=== PATIENT | female | born 1960 | race Two or more races ===

== ENCOUNTER 2017-10-14 10:32 | Emergency (ER) | payer SELFPAY ==
[~2017-10-14] VITALS: Ht 152.4 cm; Wt 45.0 kg
[2017-10-14] MEDS ORDERED: IOHEXOL 350 MG/ML 10 ML VIAL (for RAD DIAG) IVCONTRAST ONE (10:33)
[2017-10-14 10:45] VITALS: BP 140/75; PULSE 73; RESP 16; TEMP 98.4; O2SAT 99
[2017-10-14] MEDS ORDERED: SODIUM CHLOR 0.9% 1000 ML INJ 1,000 ML IV SCH (11:19)
--- NOTE | 2017-10-14 11:27 | PD ---
HPI Chief Complaint: GI Complaint Time Seen by Provider: 11:07 Travel History International Travel<30 days: No Contact w/Intl Traveler<30days: No Traveled to known affect area: No History of Present Illness HPI Patient comes to the emergency department complaining of continued epigastric abdominal pain radiating into her chest and her back. Patient was seen here 4 days ago for the same however there is no space between the K and the G of her last name. Describes pain as burning-like in nature improves with belching. Patient continues to take Nexium with minimal to no relief of symptoms. Patient reports trying to contact GI that as previously instructed, but is unable get seen until November. Patient reports pain significantly worse last night and her sisters decided to bring her back to the emergency department for reevaluation. Patient denies any abdominal surgeries. PFSH Past Medical History Diminished Hearing: No GERD: Yes Ulcer: Yes ?: Not : 2 Para: 2 Social History Alcohol Use: No Tobacco Use: No Substance Use: No Allergies-Medications (Allergen,Severity, Reaction): Coded Allergies: amoxicillin (Verified Allergy, Unknown, 10/14/17) Reported Meds & Prescriptions Reported Meds & Active Scripts Active Zofran Odt (Ondansetron Odt) 4 Mg Tab 4 Mg SL Q6HR PRN Tramadol (Tramadol HCl) 50 Mg Tab 50 Mg PO Q8H PRN Review of Systems Except as stated in HPI: all other systems reviewed are Neg Physical Exam Narrative GENERAL: Well-developed, well nourished, in no acute distress, and non-ill appearing. SKIN: Focused skin assessment warm and dry. HEAD: Atraumatic. Normocephalic. EYES: Pupils equal and round. EOMI. No scleral icterus. No injection or drainage. ENT: No nasal bleeding or discharge. Mucous membranes pink and moist. NECK: Trachea midline. No JVD. Supple. No nuclear rigidity. CARDIOVASCULAR: Regular rate and rhythm. No murmur appreciated. RESPIRATORY: No accessory muscle use. No respiratory distress. Clear to auscultation. Breath sounds equal bilaterally. GASTROINTESTINAL: Abdomen soft, nondistended, and no guarding. Hepatic and splenic margins not palpable. Normal bowel sounds x4. No pulsatile mass. Patient reports tenderness in epigastric area. MUSCULOSKELETAL: No obvious deformities. No clubbing. No cyanosis. No edema. Full range of motion. NEUROLOGICAL: Awake and alert. No obvious cranial nerve deficits. Motor grossly within normal limits. Normal speech. PSYCHIATRIC: Appropriate mood and affect; insight and judgment normal. Data Data Last Documented VS Vital Signs Date Time Temp Pulse Resp B/P (MAP) Pulse Ox O2 Delivery O2 Flow Rate FiO2 10/14/17 15:51 20 10/14/17 13:09 100 Room Air 10/14/17 13:09 65 10/14/17 10:45 98.4 140/75 (96) Orders Orders Electrocardiogram (10/14/17 11:19) Ckmb (Isoenzyme) Profile (10/14/17 11:19) Complete Blood Count With Diff (10/14/17 11:19) Comprehensive Metabolic Panel (10/14/17 11:19) Magnesium (Mg) (10/14/17 11:19) Prothrombin Time / Inr (Pt) (10/14/17 11:19) Act Partial Throm Time (Ptt) (10/14/17 11:19) Troponin I (10/14/17 11:19) Lipase (10/14/17 11:19) Ecg Monitoring (10/14/17 11:19) Bilateral Bp Monitoring (10/14/17 11:19) Iv Access Insert/Monitor (10/14/17 11:19) Oximetry (10/14/17 11:19) Oxygen Administration (10/14/17 11:19) Sodium Chloride 0.9% Flush (Ns Flush) (10/14/17 11:30) Chest, Pa & Lat (10/14/17 11:19) Sodium Chlor 0.9% 1000 Ml Inj (Ns 1000 M (10/14/17 11:19) Al-Mag Hy-Si 40-40-4 Mg/Ml Liq (Mag-Al P (10/14/17 11:30) Lidocaine 2% Viscous (Xylocaine 2% Visco (10/14/17 11:30) Ondansetron Odt (Zofran Odt) (10/14/17 11:30) Famotidine (Pepcid) (10/14/17 11:30) Urinalysis - C+S If Indicated (10/14/17 11:23) Us Abdomen Gallbladder (10/14/17 11:27) Morphine Inj (Morphine Inj) (10/14/17 13:30) Cta Thor Abd Aorta W Iv C W3d (10/14/17 ) Iohexol 350 Inj (Omnipaque 350 Inj) (10/14/17 10:33) Morphine Inj (Morphine Inj) (10/14/17 15:30) Ed Discharge Order (10/14/17 15:40) Labs Laboratory Tests Test 10/14/17 12:10 10/14/17 12:40 10/14/17 13:00 Prothrombin Time 10.4 SEC Prothromb Time International Ratio 1.0 RATIO Activated Partial Thromboplast Time 24.4 SEC Urine Color LIGHT-YELLOW Urine Turbidity CLEAR Urine pH 8.0 Urine Specific [place] 1.004 Urine Protein NEG mg/dL Urine Glucose (UA) NEG mg/dL Urine Ketones NEG mg/dL Urine Occult Blood NEG Urine Nitrite NEG Urine Bilirubin NEG Urine Urobilinogen LESS THAN 2.0 MG/DL Urine Leukocyte Esterase NEG Urine WBC 1 /hpf Microscopic Urinalysis Comment CULT NOT INDICATED White Blood Count 5.1 TH/MM3 Red Blood Count 4.47 MIL/MM3 Hemoglobin 12.6 GM/DL Hematocrit 37.2 % Mean Corpuscular Volume 83.1 FL Mean Corpuscular Hemoglobin 28.3 PG Mean Corpuscular Hemoglobin Concent 34.0 % Red Cell Distribution Width 12.4 % Platelet Count 161 TH/MM3 Mean Platelet Volume 10.3 FL Neutrophils (%) (Auto) 52.1 % Lymphocytes (%) (Auto) 39.7 % Monocytes (%) (Auto) 6.6 % Eosinophils (%) (Auto) 1.3 % Basophils (%) (Auto) 0.3 % Neutrophils # (Auto) 2.6 TH/MM3 Lymphocytes # (Auto) 2.0 TH/MM3 Monocytes # (Auto) 0.3 TH/MM3 Eosinophils # (Auto) 0.1 TH/MM3 Basophils # (Auto) 0.0 TH/MM3 CBC Comment DIFF FINAL Differential Comment Blood Urea Nitrogen 9 MG/DL Creatinine 0.53 MG/DL Random Glucose 79 MG/DL Total Protein 6.8 GM/DL Albumin 3.3 GM/DL Calcium Level 8.0 MG/DL Magnesium Level 2.2 MG/DL Alkaline Phosphatase 72 U/L Aspartate Amino Transf (AST/SGOT) 17 U/L Alanine Aminotransferase (ALT/SGPT) 26 U/L Total Bilirubin 0.4 MG/DL Sodium Level 144 MEQ/L Potassium Level 3.7 MEQ/L Chloride Level 111 MEQ/L Carbon Dioxide Level 24.7 MEQ/L Anion Gap 8 MEQ/L Estimat Glomerular Filtration Rate 119 ML/MIN Total Creatine Kinase 22 U/L Troponin I LESS THAN 0.02 NG/ML Lipase 161 U/L MDM Medical Decision Making Medical Screen Exam Complete: Yes Emergency Medical Condition: Yes Interpretation(s) EKG reviewed by Dr. Amanda shows sinus rhythm ventricular rate of 67. No STEMI. Last Impressions Gall Bladder Ultrasound 10/14/17 1127 Signed Impressions: CONCLUSION: 1. No evidence for cholelithiasis. Chest X-Ray 10/14/17 1119 Signed Impressions: CONCLUSION: No acute cardiopulmonary disease Aorta CTA 10/14/17 0000 Signed Impressions: CONCLUSION: 1. Normal appearance of the thoracic and abdominal aorta without aneurysm or d issection. Differential Diagnosis Atypical chest pain, cholecystitis, cholelithiasis, biliary colic, UTI, renal calculi, gastritis, metabolic disturbance, AAA Narrative Course The patient presented with upper epigastric abdominal pain suspicious for gastritis. There was no significant history of diarrhea and no fever. The patient appeared comfortable, well hydrated and the abdominal exam was unremarkable and minimal tender to me. Laboratory and radiographic/sonographic evaluation revealed no significant abnormality. There was no evidence of an acute, surgical abdomen at this time. There was no clinical evidence to support cholecystitis/cholelithiasis, pancreatitis, perforation of gastric ulcer, colitis, diverticulitis, bacterial peritonitis, obstruction, volvulus, early appendicitis, or hernial incarceration or strangulation nor significant GIB at this time. There was no evidence to support vascular pathology such as AAA, mesenteric ischemia. There was also no clinical evidence by history, exam or risk factors to suggest atypical presentation of cardiac disease such as ACS, AMI or atypical angina. No evidence to suggest genitourinary etiology as well. During the course of the ED visit, the patient noted improvement. Clinical picture was discussed with the patient, as well as plan of care. The patient was instructed to follow up with their GI tomorrow. Abdominal pain warnings were discussed with the patient. The patient is to return if worsens, pain worsens or changes, develop fever, inability to tolerate fluids with or without vomiting, unable to establish follow up or as needed. The patient agrees with plan. Patient in no obvious distress upon re-evaluation. All pertinent laboratory/ Radiology result(s) discussed with patient/family. Discussed patient with Dr. Amanda prior discharge, who saw and evaluated the patient and is in agreement with plan of care and disposition. Any questions/concerns in reference to patient diagnosis/condition discussed and clarified prior to patient's discharge. Reinforced sheer importance of close follow up with GI tomorrow for endoscopy. Instructed patient to return to ED immediately, if symptoms return/ worsen. Patient showed understanding of above instructions. Further instructions and recommendations were detailed in discharge paperwork. Patient ambulated without difficulty out of ED at discharge. Physician Communication Physician Communication [id number] Minor, GI on-call, who states that he can do a scope tomorrow as well as patient stays n.p.o. after midnight tonight and contact his office first thing in the morning between 8 and 830 and has an adult to drive her home. Diagnosis Primary Impression: Abdominal pain Qualified Codes: R10.13 - Epigastric pain Referrals: Kevin Minor MD Patient Instructions: Abdominal Pain (ED), General Instructions Additional Instructions: Follow-up with Dr. Minor tomorrow contact his office between 8-8:30 in the morning at [phone] to schedule time for have an endoscopy tomorrow. Nothing to eat or drink after midnight tonight. Have an adult drive you to in front of her appointment. Take all medication as prescribed. Return to the emergency department if symptoms get worse. Med/Other Pt SpecificInfo: Prescription(s) given Scripts Ondansetron Odt (Zofran Odt) 4 Mg Tab 4 MG SL Q6HR Y for Nausea/Vomiting, #12 TAB 0 Refills Prov: Juan José Amanda MD 10/14/17 Tramadol (Tramadol) 50 Mg Tab 50 MG PO Q8H Y for PAIN, #7 TAB 0 Refills Prov: Juan José Amanda MD 10/14/17 Disposition: 01 DISCHARGE HOME Condition: Stable Dwain Patricio October 14, 2017 11:27
[2017-10-14] MEDS ORDERED: SODIUM CHLORIDE 0.9% FLUSH 10 ML FLUSH IVF PRN (11:30)
[2017-10-14] MEDS ORDERED: ALUMINUM/MAGNESIUM/SIMETH 30 ML CUP PO ONE (11:30)
[2017-10-14] MEDS ORDERED: LIDOCAINE VISCOUS 2% SOLN 15 ML UDC PO ONE (11:30)
[2017-10-14] MEDS ORDERED: ONDANSETRON ODT 4 MG TAB PO ONE (11:30)
[2017-10-14] MEDS ORDERED: FAMOTIDINE 20 MG TAB PO ONE (11:30)
--- NOTE | 2017-10-14 12:08 | RADRPT ---
EXAM DATE: 10/14/2017 12:04 PM EDT AGE/SEX: 56 years / Female INDICATIONS: Abdominal pain. CLINICAL DATA: This is the patient's initial encounter. Patient reports that signs and symptoms have been present for 2 days and indicates a pain score of 4/10. MEDICAL/SURGICAL HISTORY: . History of bleeding ulcer ten years ago. For two weeks patient has been experiencing pain directly under sternum if she eats. For two days now the pain starts anterior and shoots posteriorly. No prior abdominal surgery. . Lumpectomy, right breast, three years ago. COMPARISON: No prior [facility] exams available for comparison. FINDINGS: PA and lateral views of the chest demonstrate the lungs to be symmetrically aerated without evidence of mass, infiltrate or effusion. The cardiomediastinal contours are unremarkable. Osseous structures are intact. CONCLUSION: No acute cardiopulmonary disease Electronically signed by: Moreno Stuart MD 10/14/2017 12:06 PM EDT
[2017-10-14 12:48] LABS: PROTHROMBIN TIME - PATIENT 10.4 SEC (9.8-11.6)
[2017-10-14 13:01] LABS: BILIRUBIN, URINE NEG (NEG); BLOOD, URINE NEG (NEG); GLUCOSE,URINE NEG (NEG); KETONE, URINE NEG (NEG); NITRITE,URINE NEG (NEG); URINE COLOR LIGHT-YELLOW (YELLW/STRAW); URINE LEUKOCYTE ESTERASE NEG (NEG)
[2017-10-14 13:09] VITALS: PULSE 65; RESP 17; O2SAT 100
[2017-10-14 13:12] LABS: AUTOMATED NEUTROPHIL # 2.6 TH/MM3 (1.8-7.7); BASOPHIL % 0.3 % (0.0-2.0); EOSINOPHIL # 0.1 TH/MM3 (0-0.4); EOSINOPHIL % 1.3 % (0.0-4.0); HEMATOCRIT 37.2 % (35.0-46.0); HEMOGLOBIN 12.6 GM/DL (11.6-15.3); LYMPH % 39.7 % (9.0-44.0); MEAN CELL VOLUME 83.1 FL (80.0-100.0); MEAN CORPUSCULAR HEMOGLOBIN 28.3 PG (27.0-34.0); MEAN PLATELET VOLUME 10.3 FL (7.0-11.0); MONO % 6.6 % (0.0-8.0); MONOCYTE # 0.3 TH/MM3 (0-0.9); NEUT % 52.1 % (16.0-70.0); PLATELET COUNT 161 TH/MM3 (150-450); RED BLOOD COUNT 4.47 MIL/MM3 (4.00-5.30); RED CELL DISTRIBUTION WIDTH 12.4 % (11.6-17.2); WHITE BLOOD COUNT 5.1 TH/MM3 (4.0-11.0)
--- NOTE | 2017-10-14 13:29 | RADRPT ---
EXAM DATE: 10/14/2017 1:26 PM EDT AGE/SEX: 56 years / Female INDICATIONS: Right upper quadrant and back pain. CLINICAL DATA: This is the patient's initial encounter. Patient reports that signs and/or symptoms h ave been present for 4 - 6 days and indicates a pain score of 9/10. MEDICAL/SURGICAL HISTORY: . GERD. None. COMPARISON: No prior [facility] exams available for comparison MEASUREMENTS (cm x cm x cm): Liver:__ 15.2 cm length Common Bile Duct:__ 4mm FINDINGS: Liver: Normal echotexture without focal lesion or ductal dilatation. Portal Vein: Hepatofugal flow seen in portal vein. Common Duct: No intralumincal mass or stone visualized. Gallbladder: Demonstrates no wall thickening or pericholecystic fluid. No stones visualized. Pancreas: The visualized portions are within normal limits Right Kidney: No mass or hydronephrosis Other: None. CONCLUSION: 1. No evidence for cholelithiasis. Electronically signed by: Moreno Stuart MD 10/14/2017 1:28 PM EDT
[2017-10-14] MEDS ORDERED: MORPHINE SULFATE 4 MG/ML INJ IV PUSH ONE ×2 (13:30→15:30)
[2017-10-14 13:31] LABS: ALBUMIN 3.3 GM/DL (3.4-5.0); ALT (GPT) 26 U/L (10-53); AST (GOT) 17 U/L (15-37); BICARBONATE 24.7 MEQ/L (21.0-32.0); BLOOD UREA NITROGEN 9 MG/DL (7-18); CHLORIDE 111 MEQ/L (98-107); CREATININE 0.53 MG/DL (0.50-1.00); GLOMERULAR FILTRATION RATE 119 ML/MIN (>89); GLUCOSE,RANDOM 79 MG/DL (74-106); MAGNESIUM 2.2 MG/DL (1.5-2.5); SODIUM (NA) 144 MEQ/L (136-145)
[2017-10-14 13:35] LABS: ALKALINE PHOSPHATASE 72 U/L (45-117); TOTAL BILIRUBIN ADULT 0.4 MG/DL (0.2-1.0); TOTAL PROTEIN 6.8 GM/DL (6.4-8.2); TROPONIN I LESS THAN 0.02 NG/ML (0.02-0.05)
--- NOTE | 2017-10-14 14:01 | PD ---
Data Data Last Documented VS Vital Signs Date Time Temp Pulse Resp B/P (MAP) Pulse Ox O2 Delivery O2 Flow Rate FiO2 10/14/17 15:51 20 10/14/17 13:09 100 Room Air 10/14/17 13:09 65 10/14/17 10:45 98.4 140/75 (96) Orders Orders Electrocardiogram (10/14/17 11:19) Ckmb (Isoenzyme) Profile (10/14/17 11:19) Complete Blood Count With Diff (10/14/17 11:19) Comprehensive Metabolic Panel (10/14/17 11:19) Magnesium (Mg) (10/14/17 11:19) Prothrombin Time / Inr (Pt) (10/14/17 11:19) Act Partial Throm Time (Ptt) (10/14/17 11:19) Troponin I (10/14/17 11:19) Lipase (10/14/17 11:19) Ecg Monitoring (10/14/17 11:19) Bilateral Bp Monitoring (10/14/17 11:19) Iv Access Insert/Monitor (10/14/17 11:19) Oximetry (10/14/17 11:19) Oxygen Administration (10/14/17 11:19) Sodium Chloride 0.9% Flush (Ns Flush) (10/14/17 11:30) Chest, Pa & Lat (10/14/17 11:19) Sodium Chlor 0.9% 1000 Ml Inj (Ns 1000 M (10/14/17 11:19) Al-Mag Hy-Si 40-40-4 Mg/Ml Liq (Mag-Al P (10/14/17 11:30) Lidocaine 2% Viscous (Xylocaine 2% Visco (10/14/17 11:30) Ondansetron Odt (Zofran Odt) (10/14/17 11:30) Famotidine (Pepcid) (10/14/17 11:30) Urinalysis - C+S If Indicated (10/14/17 11:23) Us Abdomen Gallbladder (10/14/17 11:27) Morphine Inj (Morphine Inj) (10/14/17 13:30) Cta Thor Abd Aorta W Iv C W3d (10/14/17 ) Iohexol 350 Inj (Omnipaque 350 Inj) (10/14/17 10:33) Morphine Inj (Morphine Inj) (10/14/17 15:30) Ed Discharge Order (10/14/17 15:40) Labs Laboratory Tests Test 10/14/17 12:10 10/14/17 12:40 10/14/17 13:00 Prothrombin Time 10.4 SEC Prothromb Time International Ratio 1.0 RATIO Activated Partial Thromboplast Time 24.4 SEC Urine Color LIGHT-YELLOW Urine Turbidity CLEAR Urine pH 8.0 Urine Specific [place] 1.004 Urine Protein NEG mg/dL Urine Glucose (UA) NEG mg/dL Urine Ketones NEG mg/dL Urine Occult Blood NEG Urine Nitrite NEG Urine Bilirubin NEG Urine Urobilinogen LESS THAN 2.0 MG/DL Urine Leukocyte Esterase NEG Urine WBC 1 /hpf Microscopic Urinalysis Comment CULT NOT INDICATED White Blood Count 5.1 TH/MM3 Red Blood Count 4.47 MIL/MM3 Hemoglobin 12.6 GM/DL Hematocrit 37.2 % Mean Corpuscular Volume 83.1 FL Mean Corpuscular Hemoglobin 28.3 PG Mean Corpuscular Hemoglobin Concent 34.0 % Red Cell Distribution Width 12.4 % Platelet Count 161 TH/MM3 Mean Platelet Volume 10.3 FL Neutrophils (%) (Auto) 52.1 % Lymphocytes (%) (Auto) 39.7 % Monocytes (%) (Auto) 6.6 % Eosinophils (%) (Auto) 1.3 % Basophils (%) (Auto) 0.3 % Neutrophils # (Auto) 2.6 TH/MM3 Lymphocytes # (Auto) 2.0 TH/MM3 Monocytes # (Auto) 0.3 TH/MM3 Eosinophils # (Auto) 0.1 TH/MM3 Basophils # (Auto) 0.0 TH/MM3 CBC Comment DIFF FINAL Differential Comment Blood Urea Nitrogen 9 MG/DL Creatinine 0.53 MG/DL Random Glucose 79 MG/DL Total Protein 6.8 GM/DL Albumin 3.3 GM/DL Calcium Level 8.0 MG/DL Magnesium Level 2.2 MG/DL Alkaline Phosphatase 72 U/L Aspartate Amino Transf (AST/SGOT) 17 U/L Alanine Aminotransferase (ALT/SGPT) 26 U/L Total Bilirubin 0.4 MG/DL Sodium Level 144 MEQ/L Potassium Level 3.7 MEQ/L Chloride Level 111 MEQ/L Carbon Dioxide Level 24.7 MEQ/L Anion Gap 8 MEQ/L Estimat Glomerular Filtration Rate 119 ML/MIN Total Creatine Kinase 22 U/L Troponin I LESS THAN 0.02 NG/ML Lipase 161 U/L [facility] Supervised Visit with DREW: Yes Narrative Course I, Dr. Amanda, have reviewed the advance practice practitioner's documentation and am in agreement, met with the patient face to face, made the diagnosis, and the medical decision making was done by me. *My assessment and Findings: Patient seen and examined by me in addition to Scar Patricio, patient has epigastric pain, radiating to her back. She is concerned that she might have an ulcer, I think is unlikely possibility but still is a possibility that she may have an aortic dissection aortic aneurysm, CT of the aorta shows no acute pathology. Her labs are reassuring. Patient feeling better after pain medication. She does have an appointment follow-up with a oven tender. She is stable for discharge at this time Scripts Ondansetron Odt (Zofran Odt) 4 Mg Tab 4 MG SL Q6HR Y for Nausea/Vomiting, #12 TAB 0 Refills Prov: Juan José Amanda MD 10/14/17 Tramadol (Tramadol) 50 Mg Tab 50 MG PO Q8H Y for PAIN, #7 TAB 0 Refills Prov: Juan José Amanda MD 10/14/17 Juan José Amanda MD October 14, 2017 14:01
--- NOTE | 2017-10-14 15:33 | RADRPT ---
EXAM DATE: 10/14/2017 3:23 PM EDT AGE/SEX: 56 years / Female INDICATIONS: Aneurysm, back and abdomen pain CLINICAL DATA: This is the patient's initial encounter. Patient reports that signs and symptoms have been present for 3 weeks and indicates a pain score of 10/10. MEDICAL/SURGICAL HISTORY: Ulcers. None. RADIATION DOSE: 7.72 CTDI (mGy) COMPARISON: No prior [facility] exams available for comparison. TECHNIQUE: Volumetric scanning was performed using a multi-row detector CT scanner during bolus infu gerald of 99 ml Omnipaque 350 (iohexol) nonionic water-soluble contrast as a single exam dose. The da ta was post processed with a variety of visualization algorithms including full volume maximum intens ity projection, multi-planar sliding thin slab reformation, curved planar reformation, and surface re ndering techniques. Using automated exposure control and adjustment of the mA and/or kV according to patient size, radiation dose was kept as low as reasonably achievable to obtain optimal diagnostic q uality images. FINDINGS: There is no thoracic or abdominal aortic aneurysm or dissection. There is a very slight bulge in the ductus region which is within normal limits. The celiac, superior mesenteric, renal artery and inferior mesenteric artery are patent. Iliac arteri es and branches are patent. Lungs are clear except for minimal dependent atelectasis. No soft tissue abnormalities identified. CONCLUSION: 1. Normal appearance of the thoracic and abdominal aorta without aneurysm or dissection. Electronically signed by: Humphrey Mauricio MD 10/14/2017 3:31 PM EDT
[2017-10-14] MEDS ORDERED: TRAM50TA PO (15:41)
[2017-10-14] MEDS ORDERED: ZOFR4TAB3 SL (15:50)
[2017-10-14 15:51] VITALS: RESP 20
--- NOTE | 2017-10-15 13:45 | EKG ---
Date Performed: 10/14/2017 Time Performed: 11:33:33 PTAGE: 56 years EKG: Sinus rhythm POSSIBLE LEFT ATRIAL ENLARGEMENT POSSIBLE RIGHT VENTRICULAR CONDUCTION DELAY ST DEVIATION AND MODERA TE T-WAVE ABNORMALITY, CONSIDER ANTEROLATERAL ISCHEMIA ABNORMAL ECG NO PREVIOUS TRACING DOCTOR: Mono Castellanos Interpretating Date/Time 10/15/2017 13:43:53
== END 2017-10-14 16:15 | disposition home or self-care (01) ==
LOC: NEPC 10:32
DX: R10.13 Epigastric pain (principal); R94.31 Abnormal electrocardiogram [ECG] [EKG]; K21.9 Gastro-esophageal reflux disease without esophagitis
CPT/HCPCS: 71046; 71275; 74174; 76705; 80053; 81001; 82550; 83690; 83735; 84484; 85025; 85610; 85730; 93005; 96361; 96374; 96376; 99285; J2270; J7030; Q9967